=== PATIENT | female | born 1985 | race Caucasian/White ===

== ENCOUNTER 2016-04-20 08:18 | Outpatient (CLI) | payer OTHER | END 2016-04-20 08:19 | disposition home or self-care (01) | DX: Z00.00 Encounter for general adult medical examination without abnormal findings (principal) ==

== ENCOUNTER 2017-04-13 08:11 | Outpatient (CLI) | payer OTHER ==
[2017-04-13 08:37] LABS: BASOPHILS % (AUTO) 0.7 %; EOSINOPHILS # (AUTO) 0.1 10^3/uL (0.0-0.7); EOSINOPHILS % (AUTO) 1.7 %; HGB - HEMOGLOBIN 12.8 g/dL (12.0-16.0); LYMPHOCYTES # (AUTO) 1.3 10^3/uL (1.5-3.5); LYMPHOCYTES % (AUTO) 25.7 %; MEAN CORPUSCULAR HEMOGLOBIN 28.7 pg (27.0-31.0); MEAN CORPUSCULAR HGB CONC 33.8 g/dL (32.0-36.0); MEAN PLATELET VOLUME 7.5 fL (7.9-10.8); MONOCYTES # (AUTO) 0.5 10^3/uL (0.0-1.0); NEUTROPHILS % (AUTO) 60.9 %; PLT - PLATELET COUNT 232 10^3/uL (130-450); RED BLOOD COUNT 4.44 10^6/uL (4.20-5.40); RED CELL DISTRIBUTION WIDTH 13.8 % (12.0-15.0)
[2017-04-13 09:08] LABS: ALBUMIN 3.6 g/dL (3.2-5.5); ALBUMIN/GLOBULIN RATIO 1.2 (1.0-2.2); ALKALINE PHOSPHATASE 47 IU/L (42-121); ALT ALANINE AMINOTRANSFERASE 10 IU/L (10-60); AST ASPARTATE AMINOTRANSFERASE 18 IU/L (10-42); BILIRUBIN,TOTAL 0.5 mg/dL (0.2-1.0); BUN - BLOOD UREA NITROGEN 11 mg/dL (6-20); CALCIUM 8.5 mg/dL (8.5-10.3); CARBON DIOXIDE - CO2 26 mmol/L (21-32); CHLORIDE 103 mmol/L (101-111); CHOL/HDL RATIO 2.3 (<4.4); CHOLESTEROL 187 mg/dL; CREATININE 0.5 mg/dL (0.4-1.0); GFR - MDRD 145 (>89); GLUCOSE 97 mg/dL (70-100); HDL CHOLESTEROL 83 mg/dL; LDL CHOLESTEROL,CALCULATED 87 mg/dL; SODIUM 135 mmol/L (135-145); TOTAL PROTEIN 6.7 g/dL (6.7-8.2); VLDL CHOLESTEROL 17 mg/dL
== END 2017-04-13 08:12 | disposition home or self-care (01) ==
LOC: LAB 08:11
PROVIDERS: ATTEND Physician Assistant Medical
DX: Z00.00 Encounter for general adult medical examination without abnormal findings (principal)
CPT/HCPCS: 36415; 80053; 80061; 84443; 85025

== ENCOUNTER 2021-04-07 16:12 | Outpatient (CLI) | payer OTHER ==
[2021-04-07 17:34] LABS: ALBUMIN 3.4 g/dL (3.2-5.5); ALBUMIN/GLOBULIN RATIO 0.9 (1.0-2.2); BILIRUBIN,TOTAL 0.3 mg/dL (0.2-1.0); CALCIUM 8.5 mg/dL (8.5-10.3); CREATININE 0.5 mg/dL (0.4-1.0); POTASSIUM 3.9 mmol/L (3.5-5.0); TOTAL PROTEIN 7.2 g/dL (6.7-8.2)
== END 2021-04-07 16:13 | disposition home or self-care (01) ==
LOC: LAB 16:12
PROVIDERS: ATTEND Nurse Practitioner Psychiatric/Mental Health
DX: F41.1 Generalized anxiety disorder (principal); Z79.899 Other long term (current) drug therapy
CPT/HCPCS: 36415; 80053

== ENCOUNTER 2023-12-10 08:00 | Outpatient (CLI) | payer BC, OTHER ==
[2023-12-10 16:54] LABS: BILIRUBIN,URINE NEGATIVE (NEGATIVE); GLUCOSE, URINE (UA) NEGATIVE (NEGATIVE); KETONES,URINE (UA) NEGATIVE (NEGATIVE); LEUKOCYTE ESTERASE, URINE NEGATIVE (NEGATIVE); NITRITE,URINE NEGATIVE (NEGATIVE); OCCULT BLOOD,URINE NEGATIVE (NEGATIVE); PH,URINE 6.5 PH (5.0-7.5); PROTEIN,URINE NEGATIVE (NEGATIVE); UROBILINOGEN,URINE 0.2 (NORMAL) E.U./dL (NORMAL)
[2023-12-10 16:56] LABS: CLARITY,URINE CLEAR (CLEAR)
[2023-12-10 17:31] LABS: RBC,URINE 0-5 /HPF (0-5); SQUAMOUS EPITHELIAL CELL,UR RARE Squamous (<= Few); WBC,URINE 0-3 /HPF (0-5)
[2023-12-10 17:32] LABS: BACTERIA,URINE None Seen /HPF (None Seen)
== END 2023-12-10 23:59 | disposition home or self-care (01) ==
LOC: LAB.WC 08:00
PROVIDERS: ATTEND Nurse Practitioner
DX: Z34.00 Encounter for supervision of normal first pregnancy, unspecified trimester (principal)
CPT/HCPCS: 81001; 87086

== ENCOUNTER 2023-12-16 16:49 | Outpatient (CLI) | payer BC ==
[2023-12-16 17:12] LABS: BASOPHILS % (AUTO) 0.6 %; EOSINOPHILS # (AUTO) 0.1 10^3/uL (0.0-0.7); EOSINOPHILS % (AUTO) 1.3 %; HCT - HEMATOCRIT 37.4 % (37.0-47.0); HGB - HEMOGLOBIN 12.7 g/dL (12.0-16.0); LYMPHOCYTES # (AUTO) 1.9 10^3/uL (1.5-3.5); MEAN CORPUSCULAR HEMOGLOBIN 29.3 pg (27.0-31.0); MEAN CORPUSCULAR VOLUME 86.2 fL (81.0-99.0); MEAN PLATELET VOLUME 9.4 fL (7.9-10.8); MONOCYTES # (AUTO) 0.9 10^3/uL (0.0-1.0); NEUTROPHILS # (AUTO) 4.2 10^3/uL (1.5-6.6); NEUTROPHILS % (AUTO) 58.8 %; PLT - PLATELET COUNT 242 10^3/uL (130-450); RED BLOOD COUNT 4.34 10^6/uL (4.20-5.40); RED CELL DISTRIBUTION WIDTH 12.8 % (12.0-15.0); WHITE BLOOD COUNT 7.2 x10^3/uL (4.8-10.8)
--- NOTE | 2023-12-17 13:39 | Ultrasound Report ---
PROCEDURE: OB 1st Trimester w/TV INDICATIONS: POSITIVE TEST OUTSIDE/PRIOR DATING DATA: Last menstrual period (LMP): 10/10/2023. LMP-based estimated date of delivery (YOSVANY): 07/16/2024. First dating scan (date and location): Today's exam. Estimated date of delivery (YOSVANY) from first dating scan: 07/17/2024. TECHNIQUE: Real-time scanning was performed of the fetus and maternal pelvic organs, with image documentation. Endovaginal scanning was also performed to better visualize the fetus and maternal ovaries. COMPARISON: None. FINDINGS: Intrauterine gestational sac present. Embryo: Present, measuring 2.6 cm, corresponding to 9 weeks 3 days, 28.7 percentile Heart rate: 176 bpm. Other: Small subchorionic hemorrhage measuring 2.3 x 1.5 cm. Measurement variability in dating: +/- 4 weeks by LMP, +/- 7 days by mean sac diameter (use before 6 weeks gestation if crown-rump length not able to be measured), +/- 5 days by crown-rump length (6-12 weeks gestation). Maternal organs: Ovaries appear within normal limits. IMPRESSION: Single living intrauterine at 9 weeks 3 days, YOSVANY of 07/17/2024 based on today's exam. Small subchorionic hemorrhage measuring 2.3 x 1.5 cm. Reviewed by: Abdullahi Gonsalves MD on 12/17/2023 1:38 PM PDT Approved by: Abdullahi Gonsalves MD on 12/17/2023 1:38 PM PDT Station ID: [id number]
[2023-12-18 03:11] LABS: HBsAG SCREEN Negative (Negative)
[2023-12-18 06:11] LABS: HIV SCREEN 4TH GENERATION Non Reactive (Non Reactive); RPR Non Reactive (Non Reactive)
[2023-12-18 08:11] LABS: VARICELLA-ZOSTER AB IGG 1548 index (Immune >165)
[2023-12-19 03:38] LABS: HCV AB Non Reactive (Non Reactive)
== END 2023-12-16 16:50 | disposition home or self-care (01) ==
LOC: DI 16:49
PROVIDERS: ATTEND Nurse Practitioner
DX: Z34.01 Encounter for supervision of normal first pregnancy, first trimester (principal); Z36.89 Encounter for other specified antenatal screening
CPT/HCPCS: 36415; 81001; 85025; 86592; 86762; 86787; 86803; 86850; 86900; 86901; 87086; 87340; 87389

== ENCOUNTER 2023-12-20 08:27 | Outpatient (CLI) | payer BC | END 2023-12-20 08:28 | disposition home or self-care (01) | LOC: LAB 08:27 | PROVIDERS: ATTEND Nurse Practitioner | DX: Z34.00 Encounter for supervision of normal first pregnancy, unspecified trimester (principal); Z36.89 Encounter for other specified antenatal screening ==

== ENCOUNTER 2024-01-05 08:00 | Outpatient (CLI) | payer BC ==
[2024-01-05 15:04] LABS: CHLAMYDIA TRACHOMATIS DNA NEGATIVE (NEGATIVE); NEISSERIA GONORRHOEAE DNA NEGATIVE (NEGATIVE); TRICHOMONAS VAGINALIS DNA NEGATIVE (NEGATIVE)
== END 2024-01-05 23:59 | disposition home or self-care (01) ==
LOC: LAB.WC 08:00
PROVIDERS: ATTEND Nurse Practitioner
DX: Z11.3 Encounter for screening for infections with a predominantly sexual mode of transmission (principal)
CPT/HCPCS: 87491; 87591; 87661

== ENCOUNTER 2024-07-13 19:58 | Inpatient (IN) ==
[2024-07-13 21:02] LABS: RUPTURE OF MEMBRANES PLUS POSITIVE (NEGATIVE)
[2024-07-13] MEDS ORDERED: TRANEXAMIC ACID IN NACL 1,000 MG/100 ML BAG IV PRN (21:27)
[2024-07-13] MEDS ORDERED: LABETALOL 20 MG/4 ML SYRINGE IVP PRN ×3 (21:27)
[2024-07-13] MEDS ORDERED: METHYLERGONOVINE 0.2 MG/ML VIAL IM PRN (21:27)
[2024-07-13] MEDS ORDERED: NIFEdipine 10 MG CAPSULE PO PRN (21:27)
[2024-07-13] MEDS ORDERED: LACTATED RINGERS 1,000 ML IV PRN (21:27)
[2024-07-13] MEDS ORDERED: TERBUTALINE 1 MG/ML VIAL SUBQ PRN (21:27)
[2024-07-13] MEDS ORDERED: lidocaine 1% 20 ML MDV ID PRN (21:27)
[2024-07-13] MEDS ORDERED: OXYTOCIN/SODIUM CHLORIDE 500 ML IV PRN (21:27)
[2024-07-13] MEDS ORDERED: miSOPROStoL 200 MCG TABLET BC PRN (21:27)
[2024-07-13] MEDS ORDERED: OXYTOCIN 10 UNIT/ML VIAL IM PRN (21:27)
[2024-07-13] MEDS ORDERED: miSOPROStoL 200 MCG TABLET PR PRN (21:27)
[2024-07-13] MEDS ORDERED: hydrALAZINE INJ 20 MG/ML VIAL IVP PRN (21:27)
[2024-07-13] MEDS ORDERED: fentaNYL 100 MCG/2 ML VIAL IVP PRN (21:27)
--- OUTSIDE RECORDS SUMMARY | 2024-07-13 21:45 | EXTERNAL MEDICAL SUMMARY RPT | Continuity of Care Document ---
Author Organization [facility] Address [address] [place] [id number] Phone Problems date description facility 2024-04-26 00:02 Encounter for immunization [facility] 2024-05-19 00:01 Panic disorder [facility]epis[facility] paroxy smal [facility]:01 Gastro-esophageal reflux diseas e without esophagitis [facility] 2024-05-19 00:01 Constipation, unspecified [facility] 2024-05-19 00:01 Disorder of pigmentation, unspe cified [facility] 2024-05-19 00:01 Diseases of the dige stive system complicating , [facility] 2024-05-19 00:01 Allergy status to un specified drugs, medicaments and biological substances [facility] 2024-06-19 23:40 Acute suppurative ot itis media without spontaneous rupture of ear drum, right ear [facility] 2024-06-20 18:17 Acute suppurative ot itis media without spontaneous rupture of ear drum, right ear [facility] 2024-06-20 18:18 Encounter for screeni ng for Streptococcus [facility] 2024-06-21 00:02 Encounter for screeni ng for Streptococcus [facility] 2024-06-22 14:25 Encounter for screeni ng for Streptococcus B [facility] 2024-06-29 14:31 Dubon's palsy [facility] 2024-06-29 14:31 Acute suppurative ot itis media without spontaneous rupture of ear drum, right ear [facility] 2024-06-29 14:31 Diseases of the nerv ous system complicating , third [facility] 2024-06-30 00:03 Dubon's palsy [facility] 2024-06-30 00:03 Diseases of the nerv ous system complicating , third trimester [facility] 2024-07-11 00:01 Dubon's palsy [facility] 2024-07-11 00:[address] [facility] ear [facility] 2024-07-11 00:01 Diseases of the nerv ous system complicating , third [facility] 2024-07-11 08:41 Acute suppurative ot itis media without spontaneous rupture of ear drum, right ear [facility] 2024-07-11 08:41 Otalgia, right ear [facility] 2024-07-11 08:41 [facility]:41 Cough, unspecified [facility] 2024-07-11 14:17 Dubon's palsy [facility] 2024-07-11 14:[address] [facility] 2024-07-11 14:17 Diseases of the nerv ous system complicating , third [facility] Results/Labs test date facility value unit notes Result panel 1 GROUP B STREP PCR 2024-06-20 18:18 [facility] POSITIVE (missing) SPECIMEN WAS RECEIVED FROZEN Result panel 2 RUPTURE OF MEMBRANES PLUS 2024-07-13 20:50 [facility] POSITIVE (missing) (missing) Social History date description facility
[2024-07-13] MEDS: AMPICILLIN 2 GM in SODIUM CHLORIDE 0.9% MINIBAG 100 ML IV ONE (22:34)
[2024-07-13] MEDS: LACTATED RINGERS 1,000 ML IV SCH (22:34)
[2024-07-13] MEDS: SODIUM CHLORIDE FLUSH 0.9% 10 ML SYRINGE IVP PRN (22:34)
--- NOTE | 2024-07-13 22:43 | PROVIDER PROGRESS NOTE ---
HPI Current : Vital Signs Temperature 37.0 C 07/13/24 20:06 Pulse Rate 81 07/13/24 20:06 Respiratory Rate 18 07/13/24 20:06 Blood Pressure 118/76 07/13/24 20:06 Plan Plan: 38 yo @ 39+4 weeks, last exam in clinic 2 days ago 1cm, has had increased brown discharge since that time. This evening about 1900 her felt a gush of fluid that was pink tinged on her pad. Upon arrival, reactive NST FHT 120, moderate variability, + accelerations, -decelerations. Alicia q 2-5cm. ROM + positive and GBS+ will admit to inpatient and begin GBS prophalaxis. First SVE after admission.
[2024-07-13 22:49] LABS: BASOPHILS % (AUTO) 0.2 %; EOSINOPHILS # (AUTO) 0.1 10^3/uL (0.0-0.7); EOSINOPHILS % (AUTO) 0.6 %; HCT - HEMATOCRIT 37.2 % (37.0-47.0); HGB - HEMOGLOBIN 12.3 g/dL (12.0-16.0); LYMPHOCYTES # (AUTO) 1.8 10^3/uL (1.5-3.5); LYMPHOCYTES % (AUTO) 17.5 %; MEAN CORPUSCULAR HEMOGLOBIN 29.4 pg (27.0-31.0); MEAN CORPUSCULAR HGB CONC 33.1 g/dL (32.0-36.0); MEAN PLATELET VOLUME 11.1 fL (7.9-10.8); MONOCYTES # (AUTO) 1.4 10^3/uL (0.0-1.0); MONOCYTES % (AUTO) 13.4 %; NEUTROPHILS # (AUTO) 6.9 10^3/uL (1.5-6.6); NEUTROPHILS % (AUTO) 67.9 %; PLT - PLATELET COUNT 159 10^3/uL (130-450); RED BLOOD COUNT 4.18 10^6/uL (4.20-5.40); RED CELL DISTRIBUTION WIDTH 13.5 % (12.0-15.0); WHITE BLOOD COUNT 10.2 x10^3/uL (4.8-10.8)
--- NOTE | 2024-07-13 23:02 | HISTORY & PHYSICAL EXAMINATION ---
Admit History Smoking Status: Never smoker Other Maternal History Other Maternal History: HPI: This 38 yo @ 39+4 weeks by LMP and confirmed by 9+3 week ultrasound presents with concern for questionable ROM (clear/pink) at about 1900. She has been nafisa on and off for 2 days. When she was evaluated in the clinic a few days ago she was 1cm. ROM + positive. Tonight, she was 5/80/-2, posterior, soft. GBS positive, admission indicated for GBS prophalaxis. She has had more regular contractions since feeling the gush of fluid with contractions q 5minutes apart. We reviewed management options at length and patient desires expectant management at this time. She has been a patient of [facility] for the duration of her which has remained uncomplicated with the exception of anxiety (zoloft increase to 200mg daily at 38 weeks) and a diagnosis of Dousman Palsy at 37 weeks. She has completed her prednisone taper and feels that she has the return of her facial muscles. ROS: No Headache, visual changes or right upper quadrant abdominal pain. Denies significant N/V. Denies urinary urgency or dysuria. All other symptoms reviewed and were negative except per HPI. In the event of an emergency, accepts the administration of blood products Social Hx: Monogamous with male partner. Denies current use of alcohol or tobacco, marijuana or other recreational drugs. Reports that she is safe in current relationship. Family Hx: Denies family history of congenital anomalies, Cystic Fibrosis or chromosomal abnormalities LMP: 10/10/2023 YOSVANY by LMP: 07/16/202412/15// +3/C/W dates (YOSVANY by u/s) 07/17/2024 Final YOSVANY: 07/17/2023 ALLERGIES: butenafine, latex, metals RX: PNV, Aspirin, Zoloft FOB: Riaz Vasquez sex: It's a BOY! PROBLEMS: Anxiety: -Sertraline initiated. 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 Symptoms improving at 39wks -s/p prednisone taper -ENT referral initiated, pending AMA Pre- Weight: 165lb BMI: 26.19 Blood type: A+ Antibody: Negative CBC: PLT 242 HCT 37.4 HGB 12.7 RUB: Immune VZV: Immune HBsAg: Negative HepC: NR RPR/AB-EIA: NR HIV: NR PAP: 11/27/2021-normal GC/CT: 01/03/2024 HSV: denies in self and partner Genetic testing: MaterniT: Negative Covid: 01/31/2024 Flu: FAS: 03/07/2024 Placenta: anterior, no previa Cord: 3VC BENNY: WNL EFW: 55.5%tile 50gm OGCT: 124 TDAP: 04/25/2024 Breast Pump: 04/25/2024 3rd trimester HGB 35.0; HCT 11.6 PLT 197 3rd trimester RPR NR GBS: 06/20/2024 Delivery plan: "Wait and see" approach to pain management. No opposed to an epi dural but hoping to see how far in labor she can advance without. MOD: Anticipate Contraception Physical exam: Normocephalic, atraumatic Heart RRR w/o M/G/R Lungs CTAB Abdomen gravid, soft, nontender. EFW 2900 FHR baseline 120, moderate variability, + accelerations, no decelerations Contractions palpate moderate every 5 minutes with soft resting tone SVE 5/80/ -2 , vertex, membranes ruptured but forebag palpable. Bilateral LE's no edema Mood is good. Not yet experiencing active labor pains. Assessment: 38 yo @ 39+4 weeks gestation by 9+3 wk U/S ROM at term Early labor FHR 120 Cat I GBS POSITIVE Plan: Admit to [facility] for Expectant management Continuous monitoring/ Intermittent heart rate auscultation. Begin ampicillin for GBS prophalaxis Support desired pain management: Jacuzzi PRN. Nitrous oxide PRN. Epidural PRN Anticipate . HPI Current : Vital Signs Temperature 37.0 C 07/13/24 20:06 Pulse Rate 81 07/13/24 20:06 Respiratory Rate 18 07/13/24 20:06 Blood Pressure 118/76 07/13/24 20:06 Meds/Allgy Home Medications Ambulatory Orders Medication Instructions Recorded Confirmed aspirin 81 mg tablet,delayed 81 mg PO .Daily Prevention of 01/31/24 07/11/24 release (Jeri Low Dose Aspirin) preeclampsia,etc vitamin-ferrous fumarate 1 tab PO .Daily 01/31/24 07/11/24 28 mg iron-folic acid 800 mcg tablet ( Tablet) sertraline 100 mg tablet 200 mg PO .Daily Generalized 07/10/24 07/11/24 anxiety disorder Allergies Allergies Allergy/AdvReac Type Severity Reaction Status Date / Time butenafine Allergy Intermediate Rash Verified 07/11/24 14:17 Latex, Natural Rubber Allergy Intermediate Rash Verified 07/11/24 14:17 Opiate pain meds Allergy Severe Nausea Uncoded 07/11/24 14:17 Fluconizole Allergy Intermediate Rash Uncoded 07/11/24 14:17 Fragrance Allergy Intermediate Rash Uncoded 07/11/24 14:17 Metals - nickel, copper Allergy Intermediate Rash Uncoded 07/11/24 14:17 PFSH Active Problems All Active Problems (Updated 07/10/24 @ 18:23 by LORETTA Alvarenga) Pressure sensation in right ear (Acute) 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 (Acute) Encounter for screening for Streptococcus B (Acute) Acute otitis media (Acute) Multiple allergies (Acute) Change in multiple pigmented skin lesions (Acute) Constipation during (Acute) GERD (gastroesophageal reflux disease) (Acute) Generalized anxiety disorder with panic attacks (Acute) 31 to 32 weeks gestation of (Acute) Supervision of elderly primigravida (>=35 years old at delivery) (Acute) Surgical History Surgical History [place] teeth extracted Family History Family History Aunt Breast cancer Congenital heart disease Uncle Depressed Maternal grandmother Depressed Social History Social History (Updated 07/10/24 @ 11:49 by Hayden Granados MA) Smoking Status: Never smoker Second hand tobacco smoke exposure: No Do you dip or chew tobacco?: No Do you vape?: No Living arrangement: At home Marital Status: Living Condition: With spouse/s.o. 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
[2024-07-14] MEDS: ONDANSETRON 4 MG/2 ML VIAL IVP PRN (02:06)
[2024-07-14] MEDS: AMPICILLIN 1 GM in SODIUM CHLORIDE 0.9% MINIBAG 100 ML IV SCH (02:49)
--- NOTE | 2024-07-14 08:42 | ANESTHESIA PROCEDURE NOTE ---
Pre-Anesthesia VS, & Labs Diagnosis Surgical Diagnosis:: , 39/4 weeks; Labor Pain Procedure Procedure: Labor Epidural if requested Vitals Vital Signs: Temp Pulse Resp BP 36.8 C 75 18 106/64 07/13/24 22:45 07/13/24 22:45 07/13/24 22:45 07/13/24 22:45 Height (in): 5 ft 7 in Weight (kg): 92 kg Body Mass Index: 31.7 BMI Classification: Obese NPO NPO: Other (currently taking po) Is Patient ?: Yes Estimated Due Date:: 07/14/24 Lab Results Current Lab Results: Laboratory Tests 07/13/24 22:27: WBC 10.2, RBC 4.18 L, Hgb 12.3, Hct 37.2, MCV 89.0, MCH 29.4, MCHC 33.1, RDW 13.5, Plt Count 159, MPV 11.1 H, Neut # (Auto) 6.9 H, Lymph # (Auto) 1.8, [place] # (Auto) 1.4 H, Eos # (Auto) 0.1, Baso # (Auto) 0.0, Absolute Nucleated RBC 0.00, Nucleated RBC % 0.0, Blood Type A POSITIVE, Antibody Screen NEGATIVE Lab results reviewed: Yes 07/13/24 22:27 Meds/Allgy Home Medications Ambulatory Orders Medication Instructions Recorded Confirmed aspirin 81 mg tablet,delayed 81 mg PO .Daily Prevention of 01/31/24 07/11/24 release (Jeri Low Dose Aspirin) preeclampsia,etc vitamin-ferrous fumarate 1 tab PO .Daily 01/31/24 07/11/24 28 mg iron-folic acid 800 mcg tablet ( Tablet) sertraline 100 mg tablet 200 mg PO .Daily Generalized 07/10/24 07/11/24 anxiety disorder Allergies Allergies Allergy/AdvReac Type Severity Reaction Status Date / Time butenafine Allergy Intermediate Rash Verified 07/11/24 14:17 Latex, Natural Rubber Allergy Intermediate Rash Verified 07/11/24 14:17 Opiate pain meds Allergy Severe Nausea Uncoded 07/11/24 14:17 Fluconizole Allergy Intermediate Rash Uncoded 07/11/24 14:17 Fragrance Allergy Intermediate Rash Uncoded 07/11/24 14:17 Metals - nickel, copper Allergy Intermediate Rash Uncoded 07/11/24 14:17 PFSH Active Problems All Active Problems Pressure sensation in right ear (Acute) 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 (Acute) Encounter for screening for Streptococcus B (Acute) Acute otitis media (Acute) Multiple allergies (Acute) Change in multiple pigmented skin lesions (Acute) Constipation during (Acute) GERD (gastroesophageal reflux disease) (Acute) Generalized anxiety disorder with panic attacks (Acute) 31 to 32 weeks gestation of (Acute) Supervision of elderly primigravida (>=35 years old at delivery) (Acute) Surgical History Surgical History [place] teeth extracted Family History Family History Aunt Breast cancer Congenital heart disease Uncle Depressed Maternal grandmother Depressed Social History Social History Smoking Status: Never smoker Second hand tobacco smoke exposure: No Do you dip or chew tobacco?: No Do you vape?: No Living arrangement: At home Marital Status: Living Condition: With spouse/s.o. 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
[2024-07-14] MEDS: SODIUM CHLORIDE FLUSH 0.9% 10 ML SYRINGE IVP SCH (09:06)
--- NOTE | 2024-07-14 09:06 | PROVIDER PROGRESS NOTE ---
Labor Progress Note Labor Progress Note Labor Progress Note/Additional Text: SVE 6.5cm/100/-1/grossly ruptured/ posterior. Using nitrous and managing well. Contractions now q 8-10minutes. Category I tracing. Discussed limited change in dilation x12 hours and recommendation for pitocin augmentation. Agreeable. Riaz () supportive at bedside.
[2024-07-14] MEDS: OXYTOCIN/SODIUM CHLORIDE 500 ML IV SCH (09:25)
[2024-07-14] MEDS: PRENATAL VITAMIN TABLET PO SCH (09:34)
[2024-07-14] MEDS: SERTRALINE 50 MG TABLET PO SCH (09:34)
[2024-07-14] MEDS ORDERED: LIDOCAINE 2%-EPI 1:100000 20 ML MDV ONE (11:26)
[2024-07-14] MEDS ORDERED: ROPIVACAINE 0.2% 200 MG/100 ML BAG EP ONE (11:26)
[2024-07-14] MEDS ORDERED: ONDANSETRON 4 MG/2 ML VIAL IVP PRN (12:32)
[2024-07-14] MEDS ORDERED: NALOXONE 0.4 MG/ML VIAL IVP PRN (12:32)
[2024-07-14] MEDS ORDERED: METOCLOPRAMIDE 10 MG/2 ML VIAL IVP PRN (12:32)
[2024-07-14] MEDS ORDERED: ePHEDrine 50 MG/ML VIAL IVP PRN (12:32)
[2024-07-14] MEDS ORDERED: diphenhydrAMINE INJ 50 MG/ML VIAL IVP PRN (12:32)
[2024-07-14] MEDS ORDERED: LACTATED RINGERS 500 ML IV ONE (12:32)
[2024-07-14] MEDS ORDERED: NALBUPHINE 10 MG/ML AMP IVP PRN (12:32)
--- NOTE | 2024-07-14 15:21 | PHARMACY PROGRESS NOTE ---
Best Possible Medication History Admit Date and Time: 07/13/242126 Home Medications Medication Instructions Recorded Confirmed Type aspirin 81 mg tablet,delayed 81 mg PO .Daily Prevention of 01/31/24 07/14/24 History release (Jeri Low Dose Aspirin) preeclampsia,etc vitamin-ferrous fumarate 1 tab PO .Daily 01/31/24 07/14/24 History 28 mg iron-folic acid 800 mcg tablet ( Tablet) sertraline 100 mg tablet 200 mg PO .Daily Generalized 07/10/24 07/14/24 History anxiety disorder Processed by: Pharmacy Medications reviewed in ED?: No Medication History completed: Yes Patient Interview: Completed Secondary Source(s): Caregiver and Insurance records [facility] Statement: Per [facility] interview with patient, and review of [employer] insurance records. As the person ultimately responsible for medication therapy, providers are able to order a medication from an existing home medication list in [facility] via the "Reconcile Routine" prior to Confirmation of that medication by postal support employee. Such practice is discouraged except when the physician, in their clinical judgment, deems that a medical need exists for a medication without regard to previous use.
--- NOTE | 2024-07-14 19:15 | PROVIDER PROGRESS NOTE ---
Labor Progress Note Labor Progress Note Labor Progress Note/Additional Text: Doing well. Comfortable with epidural. SVE /+1, thicker cervix on the right side, no distinct urge to push. Overall category I tracing. Intermittent variables and a few early/late decelerations with good recovery, + accelerations. Contractions q 2-3 minutes, Pitocin at 14mu/min.
[2024-07-14] MEDS: ROPIVACAINE 0.2% 200 MG/100 ML BAG EP PRN (20:24)
--- NOTE | 2024-07-15 00:03 | PROVIDER PROGRESS NOTE ---
Labor Progress Note Labor Progress Note Labor Progress Note/Additional Text: Patient complete and pushed x2 hours in various positions with minimal decent approximately 0 station. Molding more evident. Becoming nauseated, dry heaving with minimal emesis and exhausted no distinct urge to push. FHT overall reassur ing. Discussed continuing pushing vs taking some time for passive decent. Patient desires to rest and allow her body time to recover before resuming pushing. If urge to push resumes, will resume pushing. Otherwise will reevaluated in 2 hours.
[2024-07-15] MEDS: ACETAMINOPHEN 500 MG TABLET PO ONE (01:56)
[2024-07-15] MEDS ORDERED: PHENYLEPHRINE 10 MG/ML VIAL ONE (02:55)
[2024-07-15] MEDS ORDERED: LIDOCAINE-MPF 2% 5 ML VIAL ONE (03:00)
[2024-07-15] MEDS ORDERED: ceFAZolin (2G) 2 GM in SODIUM CHLORIDE 0.9% MINIBAG 100 ML IV ONE (03:03)
--- NOTE | 2024-07-15 03:09 | HISTORY & PHYSICAL EXAMINATION ---
Chief Complaint Chief Complaint Chief Complaint: failure to descend in labor History of Present Illness History of Present Illness HPI Comment/Other: Patient has been complete since 10 pm. has not had much urge to push. did push for about 2 hrs. rested, tried again. big decel, better. pitocin off them on again. tried vaccuum with 2 pop offs and no descent and recommend c section. Meds/Allgy Home Medications Ambulatory Orders Medication Instructions Recorded Confirmed aspirin 81 mg tablet,delayed 81 mg PO .Daily Prevention of 01/31/24 07/14/24 release (Jeri Low Dose Aspirin) preeclampsia,etc vitamin-ferrous fumarate 1 tab PO .Daily 01/31/24 07/14/24 28 mg iron-folic acid 800 mcg tablet ( Tablet) sertraline 100 mg tablet 200 mg PO .Daily Generalized 07/10/24 07/14/24 anxiety disorder Allergies Allergies Allergy/AdvReac Type Severity Reaction Status Date / Time butenafine Allergy Intermediate Rash Verified 07/11/24 14:17 Latex, Natural Rubber Allergy Intermediate Rash Verified 07/11/24 14:17 Opiate pain meds Allergy Severe Nausea Uncoded 07/11/24 14:17 Fluconizole Allergy Intermediate Rash Uncoded 07/11/24 14:17 Fragrance Allergy Intermediate Rash Uncoded 07/11/24 14:17 Metals - nickel, copper Allergy Intermediate Rash Uncoded 07/11/24 14:17 PFSH Active Problems All Active Problems (Updated 07/15/24 @ 03:09 by Elsi Patricio MD) Arrest of descent, delivered, current hospitalization (Acute) Pressure sensation in right ear (Acute) 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 (Acute) Encounter for screening for Streptococcus B (Acute) Acute otitis media (Acute) Multiple allergies (Acute) Change in multiple pigmented skin lesions (Acute) Constipation during (Acute) GERD (gastroesophageal reflux disease) (Acute) Generalized anxiety disorder with panic attacks (Acute) 31 to 32 weeks gestation of (Acute) Supervision of elderly primigravida (>=35 years old at delivery) (Acute) Surgical History Surgical History [place] teeth extracted Family History Family History Aunt Breast cancer Congenital heart disease Uncle Depressed Maternal grandmother Depressed Social History Social History Smoking Status: Never smoker Second hand tobacco smoke exposure: No Do you dip or chew tobacco?: No Do you vape?: No Living arrangement: At home Marital Status: Living Condition: With spouse/s.o. 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 Constitutional Denies: Fever or Chills Cardiovascular Denies: Irregular heart rate or shortness of breath with exertion Respiratory Denies: Shortness of breath Genitourinary Denies: Blood in urine Exam Exam Vital Signs: vital signs stable. afebrile. Constitutional normal general appearance Genitourinary baby +2, alot of caput Extremities normal to inspection and no tenderness Psychiatry mental status grossly normal and oriented x3 Skin skin color normal Conclusion/Plan Problem List (1) Arrest of descent, delivered, current hospitalization: Plan: primary low transverse c section. risks and benefits explained. consent signed. Lab Results Lab results reviewed: Yes 07/13/24 22:27
--- NOTE | 2024-07-15 03:17 | PROVIDER PROGRESS NOTE ---
Progress Note Progress Note Progress Note: called by Shalini to evaluate patient. not making progress then had a big decel. I examined her and baby's head felt lower than described. Shalini agreed. We did a few more pushes and it was + 2 and seemed worth a try to put a vacuum on. risks and benefits of vacuum explained. Dr. Albert called in. OR team in house, just finished another case. Catheter in bladder deflated. kiwi mushroom cup placed on baby's head. baby felt to be OA with a lot of caput. pulled with contraction, minimal descent and vacuum popped off. 2nd try and no descent. stopped and recommended c section to them.
--- NOTE | 2024-07-15 03:18 | PROVIDER PROGRESS NOTE ---
Labor Progress Note Labor Progress Note Labor Progress Note/Additional Text: I was awakened from nursing team during a 7 minute prolonged deceleration, with evental recovery to baseline after intrauterine resuscitation by RN team. I rechecked her station 0/+1 station. She continues to have no rectal pressure and no urge to push. I had her bare down with no movement of the head. Contractions were tracing poorly at that time, so an IUPC was placed, several contractions with each contraction measuring approximately 10-15mmHg, Given minimal change in station, recent significant deceleration, uterus not responding well to pitocin, I have called my back-up OBGYN to consult. We discussed prior to her arrival that Dr. Patricio would assess her for the potential for vacuum extraction as well as section. Upon Dr. Patricio's presentation on L&D, I have handed over to the landscape manager's higher level of care.
[2024-07-15] MEDS ORDERED: KETAMINE 500 MG/10 ML VIAL ONE (04:01)
[2024-07-15] MEDS ORDERED: miSOPROStoL 200 MCG TABLET ONE (04:05)
[2024-07-15] MEDS ORDERED: METHYLERGONOVINE 0.2 MG/ML VIAL ONE ×2 (04:05→04:39)
[2024-07-15] MEDS ORDERED: CARBOPROST TROMETHAMINE 250 MCG/ML VIAL IM ONE (04:05)
[2024-07-15] MEDS ORDERED: fentaNYL 100 MCG/2 ML VIAL ONE ×2 (04:20→04:34)
[2024-07-15] MEDS ORDERED: MIDAZOLAM 2 MG/2 ML VIAL ONE (04:45)
[2024-07-15] MEDS ORDERED: OXYTOCIN/SODIUM CHLORIDE 500 ML IV ONE (04:48)
[2024-07-15] MEDS ORDERED: NALOXONE 0.4 MG/ML VIAL IVP PRN ×2 (05:13→06:24)
[2024-07-15] MEDS ORDERED: oxyCODONE 5 MG TABLET PO PRN (05:13)
[2024-07-15] MEDS ORDERED: OXYTOCIN/SODIUM CHLORIDE 500 ML IV PRN (05:13)
[2024-07-15] MEDS ORDERED: HYDROmorphone 1 MG/ML SYRINGE ONE (05:15)
--- NOTE | 2024-07-15 05:34 | OPERATIVE REPORT ---
Operative Report General Admit Date: 07/13/24 Procedure Data: Operation Date: 07/15/24 03:15 Proposed Procedures p Section(Not Applicable) - Elsi Patricio MD Anesthesia Type Epidural Case Staff Anesthesia Provider: Alex Gamboa Assisting Provider: Shalini Alvarado Case Times Procedure Start: 07/15/24 03:53 Time out: 07/15/24 03:52 Pre-Op Diagnosis: failure to descend. failed vacuum Post Op Diagnosis: same Procedure Note Intake, IV Amount (ml): 1,500 Estimated Blood Loss (ml): 1,000 Indications: 38 yo G1 in active labor. got to complete at 10 pm and did have urge to push. She tried to push for 2 hrs and then rested. baby's head came down a bit more so I tried a vacuum but baby did not move. I recommended a c section. Findings: live male OP presentation with head wedged deep in pelvis. uterus tubes and ovaries appear normal Complications: very difficult delivery of baby Other Other Information/Narrative: Procedure: Low Transverse Section. Clean Up Worker: Shalini Lopez CNM My infertility medical assistant was scrubbed and present during the entire procedure and assisted with visualization, hemostasis, fundal pressure for infant delivery, and closure. Procedure Details The risks, benefits, complications, treatment options, and expected outcomes were discussed with the patient. The patient concurred with the proposed plan, giving informed consent. The patient was taken to the Operating Room. 2 grams of Cefazolin and 500 mg of azithromycin were given. She had sequential compression devices on her lower extremities. Quiles catheter was placed. A Time Out was held and the above information confirmed. The patient was prepped in the usual sterile manner. Drapes were placed. Anesthesia was tested and found to be adequate. A Pfannenstiel incision was made and carried down through the subcutaneous tissue to the fascia. Fascial incision was made and extended transversely. The fascia was from the underlying rectus tissue superiorly and inferiorly. The peritoneum was identified and entered. Peritoneal incision was stretched. The Joo retractor was placed and rolled down. The uterus was palpated to examine lie. A low transverse uterine incision was made. The incision was stretched manually. Bag of water was entered during the process and fluid was had mec and was minimal. The baby's arms popped out of the incision, making it very difficult to deliver the baby. I was unable to get the baby's head out of the pelvis, even with a hand from below. I removed the Joo and was able to deliver the baby's feet and then was able to deliver the baby. Once the baby was delivered, he was pretty floppy so cord was clamped and cut and he was handed off to Dr. Albert. After the umbilical cord was clamped and cut, cord blood was obtained for evaluation including cord gases. The placenta was removed intact using gentle traction and appeared normal. The uterine outline, tubes and ovaries appeared normal. There were bilateral extensions of the ut erine incisions deep into the pelvis. The uterine incision was closed with running locked sutures of 0 Monocryl suture. A second horizontal imbricating layer was placed with the same suture. Additional figure of 8 stitches were placed at the right corner which kept bleeding. I tried to take the uterus out of the body and put it back it to get better exposure. Surgicell powder was used on the corner. Hemostasis was observed. Baby required PPV and O2 initially but then was able to go to his parents after about 10 minutes. He was very alert and hungry. There is a mary's igloo bruise from the vacuum on his head anteriorly so very clear why vacuum was not successful. Baby got right on the breast but mom was too painful and agreed for us to give him some formula. He took 20 cc. Patient was very painful during the procedure. The delivery was difficult and then she was bothered by the tugging and work inside her peritoneum. It was very difficult for her and to get her comfortable. The Joo retractor was removed. Rectus muscles were examined carefully for bleeding. The fascia was then reapproximated with running sutures of 0 Vicryl. The subcutaneous tissue was brought together with 3.0 Vicryl suture and the skin was closed with 4.0 Monocryl in subcuticular fashion. Wide steri strip was placed over the wound. Bandage was placed. Uterus was expressed. Fundus was firm. Instrument, sponge, and needle counts were correct prior the abdominal closure and at the conclusion of the case. Time to close after baby was born was 70 minutes. Drains: Quiles catheter to gravity Complications: None; patient tolerated the procedure well. Disposition: back to her room on FBP for recovery. Condition: stable Plan: Routine post op care
[2024-07-15] MEDS ORDERED: fentaNYL 100 MCG/2 ML VIAL IVP PRN (06:24)
[2024-07-15] MEDS ORDERED: HYDROmorphone 0.5 MG/0.5 ML SYRINGE IVP PRN (06:24)
[2024-07-15] MEDS ORDERED: METOCLOPRAMIDE 10 MG/2 ML VIAL IVP PRN (06:24)
[2024-07-15] MEDS ORDERED: ATROPINE ABBOJECT 1 MG/10 ML SYRINGE IVP PRN (06:24)
[2024-07-15] MEDS ORDERED: ONDANSETRON 4 MG/2 ML VIAL IVP PRN (06:24)
[2024-07-15] MEDS ORDERED: ePHEDrine 50 MG/ML VIAL IVP PRN (06:24)
[2024-07-15] MEDS ORDERED: LACTATED RINGERS 1,000 ML IV SCH (07:00)
[2024-07-15] MEDS: ACETAMINOPHEN 500 MG TABLET PO SCH (08:09)
[2024-07-15] MEDS: KETOROLAC 30 MG/ML VIAL IVP SCH (08:12)
[2024-07-15] MEDS: DOCUSATE SODIUM 100 MG CAPSULE PO SCH (15:40)
[2024-07-15] MEDS: SIMETHICONE CHEW 80 MG TABLET PO PRN (15:46)
[2024-07-15] MEDS: LACTATED RINGERS 1,000 ML IV SCH (18:33)
[2024-07-15] MEDS: AZITHROMYCIN INJ 500 MG in SODIUM CHLORIDE 0.9% 250 ML IV SCH (18:34)
[2024-07-16] MEDS: IBUPROFEN 600 MG TABLET PO SCH (05:53)
[2024-07-16 05:54] LABS: HGB - HEMOGLOBIN 9.2 g/dL (12.0-16.0); MEAN CORPUSCULAR HEMOGLOBIN 29.1 pg (27.0-31.0); MEAN CORPUSCULAR HGB CONC 31.7 g/dL (32.0-36.0); MEAN CORPUSCULAR VOLUME 91.8 fL (81.0-99.0); MEAN PLATELET VOLUME 10.3 fL (7.9-10.8); RED BLOOD COUNT 3.16 10^6/uL (4.20-5.40); RED CELL DISTRIBUTION WIDTH 13.9 % (12.0-15.0); WHITE BLOOD COUNT 13.2 x10^3/uL (4.8-10.8)
[2024-07-16] MEDS ORDERED: ONDANSETRON ODT 4 MG TABLET TL PRN (20:03)
--- NOTE | 2024-07-16 20:43 | PROVIDER PROGRESS NOTE ---
Subjective Prog Note Date Prog Note Date: 07/16/24 Prog Note Time: 15:00 Subjective Pt reports feeling: Improved Subjective: POD#1 s/p ltcs for failure to descend She just got out of shower. feeling good. no dizziness or other sx of anemia. baby latching. feeling more comfortable. yesterday we spent about an hour going over her delivery and answering questions. today they had no further questions about that and we just talked about post op care. Current Medications Current Medications Current Medications: Current Medications Generic Name Dose Route Start Last Admin Trade Name Freq PRN Reason Stop Dose Admin Acetaminophen 1,000 mg 07/15/24 06:00 07/16/24 14:06 Acetaminophen 500 Mg Tablet PO 1,000 mg Q8H JIL Administration Diphenhydramine HCl 12.5 - 25 mg 07/14/24 12:32 Diphenhydramine Inj 50 Mg/Ml Vial IVP Q6HR PRN ITCHING Docusate Sodium 200 mg 07/15/24 09:00 07/16/24 09:21 Docusate Sodium 100 Mg Capsule PO 200 mg BID JIL Administration Ephedrine Sulfate 5 mg 07/14/24 12:32 Ephedrine 50 Mg/Ml Vial IVP Q5M PRN For SBP<100;give until SBP>100 Fentanyl 50 mcg 07/13/24 21:27 Fentanyl 100 Mcg/2 Ml Vial IVP Q1H PRN Severe Pain (score 7-10) Hydralazine HCl 5 - 10 mg 07/13/24 21:27 Hydralazine Inj 20 Mg/Ml Vial IVP Q20M PRN SBP> or= 160 OR DBP> or= 110 Protocol Lactated Ringer's 500 mls @ 999 mls/hr 07/13/24 21:27 Lr IV PRN PRN Non-reassuring Status Tranexamic Acid 1,000 mg in 100 mls @ 600 mls/hr 07/13/24 21:27 Tranexamic 1,000 Mg/100ml-Nacl IV Q30M PRN EBL >1200mL and within 3hr Ropivacaine 200 mg in 100 mls @ 0 mls/hr 07/14/24 12:32 07/15/24 02:11 Naropin 0.2% EP 10 mls/hr PRN PRN Administration PAIN Protocol Per Protocol Lactated Ringer's 1,000 mls @ 100 mls/hr 07/15/24 06:00 07/15/24 18:34 Lr IV Not Given .Q10H JIL Ibuprofen 600 mg 07/16/24 06:00 07/16/24 18:04 Ibuprofen 600 Mg Tablet PO 600 mg Q6HR JIL Administration Labetalol HCl 20 - 80 mg 07/13/24 21:27 Labetalol 20 Mg/4 Ml Syringe IVP Q10M PRN SBP> or= 160 OR DBP> or= 110 Protocol Labetalol HCl 20 mg 07/13/24 21:27 Labetalol 20 Mg/4 Ml Syringe IVP .ONCE PRN SBP> or= 160 OR DBP> or= 110 Protocol Labetalol HCl 20 - 40 mg 07/13/24 21:27 Labetalol 20 Mg/4 Ml Syringe IVP Q10M PRN SBP> or= 160 OR DBP> or= 110 Protocol Lidocaine HCl 20 ml 07/13/24 21:27 Lidocaine 1% 20 Ml Mdv ID 07/16/24 21:27 .ONCE PRN PERINEAL REPAIR Methylergonovine Maleate 0.2 mg 07/13/24 21:27 Methylergonovine 0.2 Mg/Ml Vial IM .ONCE PRN Hemorrhage Misoprostol 800 mcg 07/13/24 21:27 Misoprostol 200 Mcg Tablet [place] .ONCE PRN Hemorrhage Nalbuphine HCl 2.5 - 5 mg 07/14/24 12:32 Nalbuphine 10 Mg/Ml Amp IVP Q4H PRN ITCHING Naloxone HCl 0.1 mg 07/14/24 12:32 Naloxone 0.4 Mg/Ml Vial IVP Q2M PRN RR<8 Naloxone HCl 0.4 mg 07/15/24 05:13 Naloxone 0.4 Mg/Ml Vial IVP .ONCE PRN Opioid overdose Nifedipine 10 - 20 mg 07/13/24 21:27 Nifedipine 10 Mg Capsule PO Q20M PRN SBP> or= 160 OR DBP> or= 110 Protocol Ondansetron HCl 4 mg 07/16/24 20:03 Ondansetron Odt 4 Mg Tablet TL Q6HR PRN Nausea / Vomiting Oxycodone HCl 5 mg 07/15/24 05:13 Oxycodone 5 Mg Tablet PO Q4HR PRN Severe Pain 6 -10 Oxytocin 10 unit 07/13/24 21:27 Oxytocin 10 Unit/Ml Vial IM .ONCE PRN Step One if no IV access. Multivit/Folic Acid/Iron 1 tab 07/14/24 08:30 07/16/24 09:22 Vitamin Tablet PO 1 tab DAILYWM JIL Administration Sertraline HCl 200 mg 07/14/24 09:00 07/16/24 09:21 Sertraline 50 Mg Tablet PO 200 mg DAILY JIL Administration Simethicone 80 mg 07/15/24 05:13 07/16/24 14:06 Simethicone Chew 80 Mg Tablet PO 80 mg TID PRN Administration Gas Objective Vital Signs/Intake & Output Reviewed Vital Signs: Yes Vital Signs: Vital Signs x48h Temp Pulse Resp BP Pulse Ox 07/16/24 17:00 37.0 C 89 17 122/71 99 Intake & Output: Intake & Output 07/13/24 07/14/24 07/15/24 07/16/24 23:59 23:59 23:59 23:59 Intake Total 600 / 600 1624 / 1624 2102 / 2102 1200 / 1200 Output Total 400 / 400 2950 / 2950 Balance 200 / 200 1624 / 1624 -848 / -848 1200 / 1200 Weight (kg) 204 lb 15.984 oz 202 lb 13.204 oz Objective General Appearance: positive Alert Respiratory: positive No respiratory distress Cardiovascular: positive Regular rate & rhythm Abdomen: positive Non-tender and Other (wound healing without erythema. steristrips on with some bloody stain. ) Lab Results 07/16/24 05:45 Other Labs: Lab Results x24hrs 07/16/24 Range/Units 05:45 WBC 13.2 H (4.8-10.8) x10^3/uL RBC 3.16 L (4.20-5.40) 10^6/uL Hgb 9.2 L (12.0-16.0) g/dL Hct 29.0 L (37.0-47.0) % MCV 91.8 (81.0-99.0) fL MCH 29.1 (27.0-31.0) pg MCHC 31.7 L (32.0-36.0) g/dL RDW 13.9 (12.0-15.0) % Plt Count 125 L (130-450) 10^3/uL MPV 10.3 (7.9-10.8) fL Assessment/Plan Problem List (1) Arrest of descent, delivered, current hospitalization: Impression: healing well. no concerns. plan for discharge tomorrow but also maybe will want to stay another day. (2) Acute blood loss as cause of postoperative anemia: Impression: not symptomatic. bleeding from uterus is normal. will start po iron.
--- NOTE | 2024-07-17 08:36 | PROVIDER PROGRESS NOTE ---
Subjective Subjective Subjective: Subjective Patient reports she is doing well. Lochia appropriate. Denies heavy bleeding. Ambulating. Pelvic and abdominal pain well-controlled. Tolerating oral intake. Diet: Regular. Voiding without difficulty. Passing flatus. Denies BM. Patient is bonding with baby in room Breast feeding going well. Supplementing with formula Denies feeling lightheaded, dizzy or excessively fatigued. Objective General: Alert, oriented, no apparent distress. Cardiovascular: Regular rate. Regular rhythm. Lungs: No increased work of breathing. Abdomen: Uterus firm. Below umbilicus. No guarding or rebound. Extremities: No pain on palpation. No cords palpated. Distal pulses intact. Incision: Clean, dry, and intact. Steri-Strips in place Current Medications Current Medications Current Medications: Current Medications Generic Name Dose Route Start Last Admin Trade Name Freq PRN Reason Stop Dose Admin Acetaminophen 1,000 mg 07/15/24 06:00 07/17/24 05:30 Acetaminophen 500 Mg Tablet PO 1,000 mg Q8H JIL Administration Docusate Sodium 200 mg 07/15/24 09:00 07/16/24 21:23 Docusate Sodium 100 Mg Capsule PO 200 mg BID JIL Administration Ferrous Sulfate 325 mg 07/17/24 08:00 Ferrous Sulfate 325 Mg Tablet PO DAILYWM JIL Hydralazine HCl 5 - 10 mg 07/13/24 21:27 Hydralazine Inj 20 Mg/Ml Vial IVP Q20M PRN SBP> or= 160 OR DBP> or= 110 Protocol Ibuprofen 600 mg 07/16/24 06:00 07/17/24 05:30 Ibuprofen 600 Mg Tablet PO 600 mg Q6HR JIL Administration Labetalol HCl 20 - 80 mg 07/13/24 21:27 Labetalol 20 Mg/4 Ml Syringe IVP Q10M PRN SBP> or= 160 OR DBP> or= 110 Protocol Labetalol HCl 20 mg 07/13/24 21:27 Labetalol 20 Mg/4 Ml Syringe IVP .ONCE PRN SBP> or= 160 OR DBP> or= 110 Protocol Labetalol HCl 20 - 40 mg 07/13/24 21:27 Labetalol 20 Mg/4 Ml Syringe IVP Q10M PRN SBP> or= 160 OR DBP> or= 110 Protocol Nifedipine 10 - 20 mg 07/13/24 21:27 Nifedipine 10 Mg Capsule PO Q20M PRN SBP> or= 160 OR DBP> or= 110 Protocol Ondansetron HCl 4 mg 07/16/24 20:03 Ondansetron Odt 4 Mg Tablet TL Q6HR PRN Nausea / Vomiting Oxycodone HCl 5 mg 07/15/24 05:13 Oxycodone 5 Mg Tablet PO Q4HR PRN Severe Pain 6 -10 Multivit/Folic Acid/Iron 1 tab 07/14/24 08:30 07/16/24 09:22 Vitamin Tablet PO 1 tab DAILYWM JIL Administration Sertraline HCl 200 mg 07/14/24 09:00 07/16/24 09:21 Sertraline 50 Mg Tablet PO 200 mg DAILY JIL Administration Simethicone 80 mg 07/15/24 05:13 07/16/24 21:24 Simethicone Chew 80 Mg Tablet PO 80 mg TID PRN Administration Gas Objective Vital Signs/Intake & Output Intake & Output: Intake & Output 07/14/24 07/15/24 07/16/24 07/17/24 23:59 23:59 23:59 23:59 Intake Total 1624 / 1624 2102 / 2102 1200 / 1200 Output Total 2950 / 2950 Balance 1624 / 1624 -848 / -848 1200 / 1200 Weight (kg) 202 lb 13.204 oz Lab Results 07/16/24 05:45 Assessment/Plan Problem List (1) Delivery by section: Impression: Routine postoperative care. Routine care. Help with breast-feeding as needed, baby with hyperbilirubinemia. Anticipate discharge tomorrow, especially if baby and feeding well (2) Acute blood loss as cause of postoperative anemia: Impression: No symptoms of blood loss. Blood loss as anticipated from section. (3) Delivery outcome of funez infant: Impression: As above Qualifiers: outcome: live Qualified Code(s): Z37.0 - Single live
[2024-07-17] MEDS: FERROUS SULFATE 325 MG TABLET PO SCH (09:16)
[2024-07-18 04:29] VITALS: BP 114/69
--- NOTE | 2024-07-18 10:12 | Discharge Summary ---
Discharge Summary Admit Date: 07/13/24 Discharge Date: 07/18/24 Discharging Provider: Shilo Cox MD DIAGNOSES Admission Diagnoses: Rupture of membranes 39 weeks gestation Term labor Dubon's palsy Discharge Diagnoses with Status of Each Condition: Same Failure to progress Status post primary low-transverse section Heat rash HPI History of Present Illness: Subjective Patient reports she is doing well. Lochia appropriate. Denies heavy bleeding. Ambulating. Pelvic and abdominal pain well-controlled. Tolerating oral intake. Diet: Regular. Voiding without difficulty. Passing flatus. Denies BM. Patient is bonding with baby in room Breast feeding going well. Supplementing with formula Denies feeling lightheaded, dizzy or excessively fatigued. Objective General: Alert, oriented, no apparent distress. Cardiovascular: Regular rate. Regular rhythm. Lungs: No increased work of breathing. Abdomen: Uterus firm. Below umbilicus. No guarding or rebound. Petechial rash along under breast and flanks. Extremities: No pain on palpation. No cords palpated. Distal pulses intact. Incision: Clean, dry, and intact. HOSPITAL COURSE Hospital Course: Patient was admitted for SPECT manage after a rupture of membranes and labor. She was 5 cm. She progressed to complete and started pushing. She was then allowed to rest, then restarted, but did not this end. She had attempted vacuum extraction, but no dissent, so she underwent a primary low-transverse section. Delivery is complicated by a hemorrhage, but was asymptomatic. Repeat blood levels were low but not significant enough for transfusion. She initially had a slow start of breast-feeding and some jaundice, but this improved and was discharged on postoperative day 3 with her . She did have a slight rash on her torso, but had not received any recent antibiotics nor new medications. Greatest under her breast as well as on her flanks. No significant pruritus. Was instructed to use steroid cream, antihistamine if needed. If this worsens, was instructed to call back. Discussed surgical management of her wound as well as precautions. ALLERGIES Allergies Allergy/AdvReac Type Severity Reaction Status Date / Time butenafine Allergy Intermediate Rash Verified 07/16/24 09:21 Latex, Natural Rubber Allergy Intermediate Rash Verified 07/16/24 09:21 fluconazole (From Diflucan) Allergy Mild Rash Verified 07/16/24 21:12 Fragrance Allergy Intermediate Rash Uncoded 07/16/24 09:21 Metals - nickel, copper Allergy Intermediate Rash Uncoded 07/16/24 09:21 MEDICATIONS Ambulatory Orders Medication Instructions Recorded Confirmed vitamin-ferrous fumarate 1 tab PO .Daily 01/31/24 07/14/24 28 mg iron-folic acid 800 mcg tablet ( Tablet) sertraline 100 mg tablet 200 mg PO .Daily Generalized 07/10/24 07/14/24 anxiety disorder acetaminophen 500 mg tablet 1,000 mg (2 x 500 mg) PO Q8H PRN 07/18/24 (Acetaminophen Extra Strength) Pain #60 tabs ibuprofen 600 mg tablet 600 mg PO Q6H PRN Pain #30 tabs 07/18/24 PHYSICAL EXAM AT DISCHARGE Vital Signs: Vital Signs x48h Temp Pulse Resp BP Pulse Ox 07/18/24 04:27 36.8 C 86 16 114/69 97 LABS 07/16/24 05:45 FOLLOW UP Follow Up: With [facility] women[facility] care in 1 week TIME SPENT Time Spent in Discharge (Minutes): 30 Discharge Plan Discharge Patient Disposition: Home, Self Care Prescriptions: New acetaminophen [Acetaminophen Extra Strength] 500 mg tablet 1,000 mg PO Q8H PRN (Reason: Pain) Qty: 60 1RF ibuprofen 600 mg tablet 600 mg PO Q6H PRN (Reason: Pain) Qty: 30 0RF Continued vit-iron fum-folic ac [ Tablet] 28 mg iron- 800 mcg tablet 1 tab PO .Daily sertraline 100 mg tablet 200 mg PO .Daily Discontinued aspirin [Jeri Low Dose Aspirin] 81 mg tablet,delayed release (DR/EC) 81 mg PO .Daily Activity Restrictions: Additional Comments Diet: Regular Print Language: Georgian Patient Instructions: Depression , C Section Dc Follow-up Care: Arely Paris FNP [Primary Care Provider] -
[2024-07-18 13:57] VITALS: TEMP 98.4; O2SAT 99
--- NOTE | 2024-07-18 13:58 | Labor Flowsheet ---
Labor Flowsheet Datetime Report Generated by CPN: 07/18/2024 13:57 Datetime: 07/15/2024 10:04 Membranes Ruptured Date/Time: 07/13/2024 06:30 Datetime: 07/15/2024 03:28 Frequency (min): 3-3.5 Duration (sec): 90-110 ASSESSMENT A Monitor Mode: External US FHR Baseline Rate : 130 Variability: Moderate 6-25 bpm Accelerations: 15X15 Decelerations: None Category: Category I Oxygen Method: Room Air Communication Comments: turned over care of pt to OR staff at this time. Pt wheeled from room by O R RN Datetime: 07/15/2024 03:15 UTERINE ACTIVITY Monitor Mode: External Monitor Interventions for UA: [place] Adjusted Quality: Moderate Pattern: Normal: <= 5 Contractions in 10 Minutes Resting Tone (Palpate): Relaxed Datetime: 07/15/2024 03:04 Anesthesia Comments: anesthesia provider in room to consent before surgery Datetime: 07/15/2024 03:00 VITAL SIGNS NBP Sys/[place]/Mean (mmHg): 114 : 68 : 78 Pulse: 79 Contraction Comments: IUPC removed. ctx palpate moderate at this time _4 minutes LaborFlag: Labor Datetime: 07/15/2024 02:50 MEDICATIONS Pitocin (milliunits): Discontinued Datetime: 07/15/2024 02:49 Vacuum: Pop Off Datetime: 07/15/2024 02:34 Stage 2 Comments: pushing resumed Datetime: 07/15/2024 02:30 Resting Tone IUP (mmHg): 0 Intensity IUP (mmHg): 30 Ashley Units (mmHg): 55 Datetime: 07/15/2024 02:23 Station: 2 Exam by: Dr Patricio Datetime: 07/15/2024 02:18 COMMUNICATION Communication: Provider at Bedside Datetime: 07/15/2024 01:54 SpO2 (%): 98 Datetime: 07/15/2024 01:45 Medication Comments: pitocin halved and restarted per cnm verbal order Datetime: 07/15/2024 01:30 Temperature (C): 36.8 Temperature Route: Oral Actions for Decelerations: Side to Side; Other Comments: baseline undetermined for this time period due to prolonged deceleration and incomplete f hr tracing Datetime: 07/15/2024 01:15 Patient Position/Activity: Left Lateral Patient Care Comments: rn adjusted toco during this time and left bedside for pt to get rest. pt i n L lat with pillow between knees at this time. Datetime: 07/14/2024 23:27 Pushing Position: Pushing Lithotomy Datetime: 07/14/2024 22:03 STAGE 2 Pushing: Coached on Pushing Datetime: 07/14/2024 21:30 Pitocin Checklist: No More than 1 Late Deceleration Occurred in Past 30 Minutes; No More than 2 Mateusz iable Decelerations > 60 Seconds in Duration and decreasing >60 bpm in 30 minutes; Uterus Palpates So ft between Contractions Datetime: 07/14/2024 19:15 MATERNAL ASSESSMENT Level of Consciousness: Alert Headache: Denies Nausea/Vomiting: Denies RUQ Epigastric Pain: Denies Datetime: 07/14/2024 19:04 VAGINAL EXAM Dilatation (cm): 9.5 Effacement (%): 90 Datetime: 07/14/2024 17:49 Vaginal Bleeding: Normal Show Datetime: 07/14/2024 17:30 FHR Baseline Changes: No Baseline Change Datetime: 07/14/2024 16:29 Membranes Rupture Method: Artificial Amniotic Fluid Color: Clear Amniotic Fluid Amount: Moderate Amniotic Fluid Odor: Normal Membrane Comments: Second AROM by cnm Datetime: 07/14/2024 13:30 Respirations: 18 Datetime: 07/14/2024 12:31 I/O Interventions: Quiles Cath Inserted Datetime: 07/14/2024 11:57 ANESTHESIA Epidural Procedure: Completed Datetime: 07/14/2024 11:40 PROCEDURE TIME OUT Procedure Verify: Correct Patient Identity; Correct Side and Site are Marked; Accurate Procedure Co nsent Form; Agreement on Procedure to be Done; Correct Patient Position; Relevant Images and Results are Properly Labeled and Displayed; Addressed Need to Administer Antibiotics or Fluids for Irrigation ; Safety Precautions Based on Patient History or Medication Use Datetime: 07/14/2024 08:57 Cervix, Position: Posterior Datetime: 07/14/2024 07:51 Pain Assessment Comments: pt reports nitrous oxide effective and helpful with contractions Datetime: 07/14/2024 06:49 Antibiotics: Ampicillin IV 1 Gm Datetime: 07/14/2024 06:02 PAIN Pain Scale: 7 Pain Presence: Intermittent Pain Type: Cramping; Sharp; Contraction; Pressure Pain Location: Abdomen; Back; Right Groin; Left Groin; Right Hip; Left Hip Pain Goal: 8 Pain Relief Measures: Comfort Measures Pain Coping: Breathing Through Contractions Comfort Measures: Breathing/Relaxation; Back Rub Given; Hot/Cold Pack; Family Support Datetime: 07/14/2024 05:30 Stage of : Labor Datetime: 07/14/2024 02:10 Antiemetics/Antacids: Zofran (mg) @ 4mg SIVP, NS flush Datetime: 07/13/2024 22:35 PATIENT CARE IV/Blood Work: IV Infusing per Order Datetime: 07/13/2024 22:13 Cervix, Consistency: Soft Datetime: 07/13/2024 22:00 Provider Notified (Name): CNNazia Alvarado Notification Reason: Status; Uterine Activity; Pain Datetime: 07/13/2024 21:45 TEACHING Instructional Method: Demo; Verbal; Patient Instructed; Family/Support Person Instructed; Verbalize d Understanding Plan of Care: Plan of Care Discussed; Vaginal Delivery; Labor Unit Routine: Brantley to Room; Call Dubon; Bed; Visiting Policy; Waiting Areas; Phone/Cell Phone Use; Unit Personnel; Handwashing; Monitoring; IV Pumps; Safety/Fall Risk Prevention; Diet/Nutrition Services; Bathroom Privileges; Medications Labor/Induction: Labor Stages Pain Management: PRN Medications; Pain Scale/Goals; Comfort Measures Medications: Antibiotics Related: Nutrition; Hydration; Activity and Rest Datetime: 07/13/2024 21:10 Membrane Status: Ruptured Pool: Positive ROM Test Kit: Positive Datetime: 07/13/2024 20:33 Breath Sounds, Left: Clear and Equal Breath Sounds, Right: Clear and Equal Datetime: 07/13/2024 20:30 DTR's/Clonus: DTRs 2+; No Clonus
== END 2024-07-18 13:50 | disposition home or self-care (01) | DRG 787 ==
LOC: WFO 19:58 → FBP 20:00
PROVIDERS: ADMIT Nurse Practitioner; ATTEND Nurse Practitioner
DX: F41.9 Anxiety disorder, unspecified; O99.824 Streptococcus B carrier state complicating childbirth; O32.4XX0 Maternal care for high head at term, not applicable or unspecified; D62 Acute posthemorrhagic anemia; Z3A.39 39 weeks gestation of pregnancy; O72.1 Other immediate postpartum hemorrhage; G51.0 Bell's palsy; R21 Rash and other nonspecific skin eruption; O99.893 Other specified diseases and conditions complicating puerperium; Z79.82 Long term (current) use of aspirin; Z37.0 Single live birth; O90.81 Anemia of the puerperium; O66.5 Attempted application of vacuum extractor and forceps; O76 Abnormality in fetal heart rate and rhythm complicating labor and delivery; O99.344 Other mental disorders complicating childbirth; O99.354 Diseases of the nervous system complicating childbirth; Z79.899 Other long term (current) drug therapy